=== PATIENT | female | born 1965 | race Caucasian/White ===

== ENCOUNTER 2023-05-30 07:25 | Day surgery (SDC) | payer BC ==
[~2023-05-30] VITALS: Ht 172.7 cm; Wt 128.2 kg
[~2023-05-30 07:25] MED LIST: 24 HOUR ALLER15.8 ML NAS; CELEBREX200 MG PO; DOXYCYCLINE HY100 MG PO; LEXAPRO10 MG PO; PREDNISONE5 MG PO; SINGULAIR10 MG PO; SPRINTEC1 EACH PO; TRAZODONE HCL50 MG PO
[2023-05-30 07:41] VITALS: BP 114/60
[2023-05-30] MEDS ORDERED: ATORVASTATIN CA40 MG PO (07:46)
[2023-05-30] MEDS ORDERED: ASPIRIN325 MG PO (07:46)
[2023-05-30] MEDS ORDERED: ZYRTEC10 MG PO (07:47)
--- NOTE | 2023-05-30 09:42 | NUR ---
05/30/23 0942 Natalia Kramer 0935- PT ARRIVES IN PACU, LEFT LATERAL POSITION. O2 AT 2L PER NC, LR INFUSING TO RW IV. PT AWAKE OFF AND ON BUT DROWSY. DENIES PAIN OR NAUSEA. ABD SOFT, NON DISTENDED. ENCOURAGED TO PASS GAS TO DECREASE CRAMPING. ALL MONITORS APPLIED. WILL CONTINUE TO MONITOR.
[2023-05-30 10:08] VITALS: BP 102/71
--- NOTE | 2023-05-31 10:44 | OR ---
[facility] [address], [place] [address] Signed DATE OF OPERATION: 05/30/2023 SURGEON: Live Beltre MD PREOPERATIVE DIAGNOSIS: History of polyp with resection in [place], [place] on December 04, 2018. POSTOPERATIVE DIAGNOSIS: No evidence of recurrent polyp. PROCEDURE: Total colonoscopy to cecum. ANESTHESIA: Intravenous sedation, fentanyl 150 mcg and Versed 6 mg. INDICATIONS FOR THE PROCEDURE: This 58-year-old white woman is a patient of Dr. Vu. She is here for colon screening. She last underwent colonoscopy in 2019 as noted. She had a polyp at that time, which was resected with mucosal lift technique based on photos that the patient provides. This was in [place], [place]. She is symptom-free at this time and has no known family history of colon cancer. She is admitted at this time to undergo surveillance colonoscopy, understands the risk of bleeding, infection, and perforation. FINDINGS: The prep was good. Complete colonoscopy was undertaken of the cecum without question. She had no evidence of recurrent or persistent polyp and no other findings of note. DESCRIPTION OF PROCEDURE: The patient was brought to the endoscopy suite and placed in lateral decubitus position given intravenous sedation to the point of slurred speech and nystagmus. Digital rectal examination was normal. An Olympus video colonoscope was passed into the rectum and manipulated throughout the colon ultimately intubating the cecum itself. The ileocecal valve and appendiceal orifice appeared normal. Scope was withdrawn. Examination showed no sign of abnormality, specifically no polyps, diverticular formation, colitis, or cancer. Retroflexed view was normal as well. The scope was removed and the patient was taken to the recovery room in good condition. CONCLUDING DIAGNOSIS: Normal colon. Electronically Signed By: LIVE BELTRE MD 05/31/23 1044 PATIENT NAME: UMU BRADY OPERATIVE REPORT DATE OF : 65 REPORT #: [id number] PHYSICIAN: LIVE BELTRE MD PCP: SENA VU MD REPORT IS CONFIDENTIAL AND NOT TO BE RELEASED WITHOUT AUTHORIZATION [facility] [address], [place] [address] Signed PLAN: Recommend repeat colonoscopy in 5-7 years or sooner if symptoms should occur. She will return to the ongoing care of Dr. Vu. MD RYANN Beth/MODL /[id number] cc: Dr. Vu Copies: ~ Electronically Signed By: LIVE BELTRE MD 05/31/23 1044 PATIENT NAME: UMU BRADY OPERATIVE REPORT DATE OF : 65 REPORT #: [id number] PHYSICIAN: LIVE BELTRE MD PCP: SENA VU MD REPORT IS CONFIDENTIAL AND NOT TO BE RELEASED WITHOUT AUTHORIZATION
== END 2023-05-30 10:15 | disposition home or self-care (01) ==
LOC: DS 07:25 → OPS 07:25 → DS 08:45 → OPS 08:45
PROVIDERS: ATTEND Surgery
PROC: 0DJD8ZZ Inspection of Lower Intestinal Tract, Via Natural or Artificial Opening Endoscopic (ICD-10-PCS; principal; 2023-05-30 08:45)
DX: Z12.11 Encounter for screening for malignant neoplasm of colon (principal); Z86.010 Personal history of colon polyps; Z86.16 Personal history of COVID-19; Z98.890 Other specified postprocedural states
CPT/HCPCS: 99153; G0500; J2250; J3010; J7121